=== PATIENT | male | born 1950 | race Caucasian/White ===

== ENCOUNTER 2016-05-30 12:31 | Outpatient (RCR) ==
[2016-05-30 13:09] VITALS: TEMP 98.8; BMI 37.2
[2016-06-27 09:53] VITALS: BP 140/72
== END 2016-06-28 ==
LOC: CAR.REHAB 12:31
PROVIDERS: ATTEND Internal Medicine
DX: Z95.4 Presence of other heart-valve replacement (principal); Z95.1 Presence of aortocoronary bypass graft
CPT/HCPCS: 93798

== ENCOUNTER 2016-06-29 06:54 | Outpatient (RCR) ==
[2016-07-25 09:57] VITALS: BP 158/62
== END 2016-07-26 ==
LOC: CAR.REHAB 06:54
PROVIDERS: ATTEND Internal Medicine
DX: Z95.4 Presence of other heart-valve replacement (principal); Z95.1 Presence of aortocoronary bypass graft
CPT/HCPCS: 93798

== ENCOUNTER 2016-07-27 06:43 | Outpatient (RCR) ==
[2016-08-22 09:49] VITALS: BP 152/56
== END 2016-08-26 ==
LOC: CAR.REHAB 06:43
PROVIDERS: ATTEND Internal Medicine
DX: Z95.2 Presence of prosthetic heart valve (principal); Z95.1 Presence of aortocoronary bypass graft
CPT/HCPCS: 93798

== ENCOUNTER 2016-08-23 13:49 | Outpatient (CLI) | END 2016-08-23 13:50 | disposition home or self-care (01) | LOC: AMBL 13:49 | PROVIDERS: ATTEND Internal Medicine | DX: R06.02 Shortness of breath (principal); I10 Essential (primary) hypertension; E11.9 Type 2 diabetes mellitus without complications; Z79.899 Other long term (current) drug therapy ==

== ENCOUNTER 2016-08-27 07:00 | Outpatient (RCR) | payer OTHER ==
[2016-09-05 14:25] VITALS: BP 158/60
== END 2016-09-05 12:30 | disposition home or self-care (01) ==
LOC: CAR.REHAB 07:00
PROVIDERS: ATTEND Internal Medicine
DX: I25.810 Atherosclerosis of coronary artery bypass graft(s) without angina pectoris (principal); Z95.2 Presence of prosthetic heart valve
CPT/HCPCS: 93798

== ENCOUNTER 2016-09-12 08:45 | Outpatient (RCR) ==
[2016-09-21 09:06] VITALS: BP 138/64
== END 2016-09-25 ==
LOC: CAR.REHAB 08:45
PROVIDERS: ATTEND Internal Medicine
DX: I25.810 Atherosclerosis of coronary artery bypass graft(s) without angina pectoris (principal); Z95.2 Presence of prosthetic heart valve
CPT/HCPCS: 93797

== ENCOUNTER 2016-09-26 12:26 | Outpatient (RCR) ==
[2016-10-12 09:57] VITALS: BP 146/68
== END 2016-10-26 ==
LOC: CAR.REHAB 12:26
PROVIDERS: ATTEND Internal Medicine
DX: I25.810 Atherosclerosis of coronary artery bypass graft(s) without angina pectoris (principal); Z95.2 Presence of prosthetic heart valve
CPT/HCPCS: 93797

== ENCOUNTER 2016-10-23 08:57 | Emergency (ER) ==
[2016-10-23 09:10] VITALS: BP 221/114; TEMP 96.1; BMI 31.3
== END 2016-10-23 09:13 | disposition left against medical advice (07) ==
LOC: ED 08:57
DX: I10 Essential (primary) hypertension (principal); R51 Headache
CPT/HCPCS: 99281

== ENCOUNTER 2016-10-27 10:23 | Outpatient (RCR) ==
[2016-11-23 09:12] VITALS: BP 148/72
== END 2016-11-25 ==
LOC: CAR.REHAB 10:23
PROVIDERS: ATTEND Internal Medicine
DX: I25.810 Atherosclerosis of coronary artery bypass graft(s) without angina pectoris (principal); Z98.890 Other specified postprocedural states
CPT/HCPCS: 93797

== ENCOUNTER 2016-11-28 06:39 | Outpatient (RCR) ==
[2016-12-22 08:27] VITALS: BP 142/64
== END 2016-12-26 ==
LOC: CAR.REHAB 06:39
PROVIDERS: ATTEND Internal Medicine
DX: I25.810 Atherosclerosis of coronary artery bypass graft(s) without angina pectoris (principal); Z95.2 Presence of prosthetic heart valve
CPT/HCPCS: 93797

== ENCOUNTER 2016-12-27 06:44 | Outpatient (RCR) | END 2017-01-26 | LOC: CAR.REHAB 06:44 | PROVIDERS: ATTEND Internal Medicine | DX: Z95.1 Presence of aortocoronary bypass graft (principal); Z95.2 Presence of prosthetic heart valve ==

== ENCOUNTER 2017-01-27 08:27 | Outpatient (RCR) | END 2017-02-20 09:57 | disposition home or self-care (01) | LOC: CAR.REHAB 08:27 | PROVIDERS: ATTEND Internal Medicine | DX: I25.810 Atherosclerosis of coronary artery bypass graft(s) without angina pectoris (principal); Z95.2 Presence of prosthetic heart valve ==

== ENCOUNTER 2017-07-24 08:25 | Outpatient (RCR) ==
[2017-07-24 09:52] VITALS: BP 136/56; TEMP 98.5; BMI 34.4
== END 2017-07-26 ==
LOC: CAR.REHAB 08:25
PROVIDERS: ATTEND Internal Medicine
DX: I25.810 Atherosclerosis of coronary artery bypass graft(s) without angina pectoris (principal)
CPT/HCPCS: 93797

== ENCOUNTER 2017-07-27 06:54 | Outpatient (RCR) ==
[2017-08-25 09:47] VITALS: BP 126/54
== END 2017-08-26 ==
LOC: CAR.REHAB 06:54
PROVIDERS: ATTEND Internal Medicine
DX: I25.810 Atherosclerosis of coronary artery bypass graft(s) without angina pectoris (principal)
CPT/HCPCS: 93797

== ENCOUNTER 2017-08-28 06:35 | Outpatient (RCR) ==
[2017-09-25 09:56] VITALS: BP 136/56
== END 2017-09-25 23:59 ==
LOC: CAR.REHAB 06:35
PROVIDERS: ATTEND Internal Medicine
DX: I25.810 Atherosclerosis of coronary artery bypass graft(s) without angina pectoris (principal)
CPT/HCPCS: 93797

== ENCOUNTER 2017-09-26 07:18 | Outpatient (RCR) ==
[2017-10-16 09:48] VITALS: BP 144/58
== END 2017-10-26 23:59 ==
LOC: CAR.REHAB 07:18
PROVIDERS: ATTEND Internal Medicine
DX: I25.810 Atherosclerosis of coronary artery bypass graft(s) without angina pectoris (principal)
CPT/HCPCS: 93797

== ENCOUNTER 2017-10-27 06:56 | Outpatient (RCR) ==
[2017-11-16 09:41] VITALS: BP 138/58
== END 2017-11-25 23:59 ==
LOC: CAR.REHAB 06:56
PROVIDERS: ATTEND Internal Medicine
DX: I25.810 Atherosclerosis of coronary artery bypass graft(s) without angina pectoris (principal)
CPT/HCPCS: 93797

== ENCOUNTER 2017-11-27 07:30 | Outpatient (RCR) ==
[2017-11-28 09:54] VITALS: BP 140/56
== END 2017-12-26 23:59 ==
LOC: CAR.REHAB 07:30
PROVIDERS: ATTEND Internal Medicine
DX: I25.810 Atherosclerosis of coronary artery bypass graft(s) without angina pectoris (principal); Z95.2 Presence of prosthetic heart valve
CPT/HCPCS: 93797

== ENCOUNTER 2017-12-27 07:03 | Outpatient (RCR) | END 2018-01-26 23:59 | LOC: CAR.REHAB 07:03 | PROVIDERS: ATTEND Internal Medicine | DX: I25.810 Atherosclerosis of coronary artery bypass graft(s) without angina pectoris (principal); Z95.2 Presence of prosthetic heart valve ==

== ENCOUNTER 2018-01-30 06:53 | Outpatient (RCR) | END 2018-02-25 23:59 | LOC: CAR.REHAB 06:53 | PROVIDERS: ATTEND Internal Medicine | DX: I25.810 Atherosclerosis of coronary artery bypass graft(s) without angina pectoris (principal); Z95.2 Presence of prosthetic heart valve ==

== ENCOUNTER 2018-02-26 08:07 | Outpatient (RCR) ==
[2018-03-27 09:43] VITALS: BP 180/88
== END 2018-03-28 23:59 ==
LOC: CAR.REHAB 08:07
PROVIDERS: ATTEND Internal Medicine
DX: I25.810 Atherosclerosis of coronary artery bypass graft(s) without angina pectoris (principal); Z95.2 Presence of prosthetic heart valve

== ENCOUNTER 2018-03-27 09:29 | Emergency (ER) ==
[2018-03-27 09:35] VITALS: BP 164/87; TEMP 97.7; BMI 40.4
--- NOTE | 2018-03-27 10:13 | ED.PDOC ---
General ED Provider: Dr. CINDY MCKINNEY Chief Complaint: Hypertension Stated Complaint: Was in Cardiac Rehab and BP was elevated. Sent to ER for evaluation. HX Hypertension and Coronary Artery Disease. Time Seen by Physician: 10:00 Mode of Arrival: Wheelchair Information Source: Patient Exam Limitations: No limitations Primary Care Provider: CINDY CISNEROS Referred to ED by: PCP Nursing and Triage Documentation Reviewed and Agree: Yes Does patient meet sepsis criteria?: No System Inflammatory Response Syndrome: Not Applicable Sepsis Protocol: For patient's 13 years and over: Temp is 96.8 and below OR 101 and greater Pulse >90 BPM Resp >20/minute Acutely Altered Mental Status Are patient's symptoms suggestive of a new infection, such as: -Pneumonia -Skin, Soft Tissue -Endocarditis -UTI -Bone, Joint Infection -Implantable Device -Acute Abdominal Infection -Wound Infection -Meningitis -Blood Stream Catheter Infection -Unknown Cardiovascular Complaint Exam - Hypertension Complaint/Exam Symptoms Are: Still present Timing: Constant Reported B/P Prior to Arrival: 180/88-186/90-176/86 Aggravating: Reports: Exertion Alleviating: Reports: Rest Associated Signs and Symptoms: Denies: Chest pain, Vision changes, Anxiety, Recent stress, Headache, Numbness, Tingling, Weakness, Dizziness, Short of air, Swelling Related History: Reports: Similar episode, Current ARBs, Current Ca Machado.Yomi Related Surgical History: Reports: Cardiac Cath, CABG Cardiac Risk Factors: Reports: Hypertension, Smoking Recent Change in Medications: No A/V Nicking: No Papilledema Present: No JVD Present: No Carotid Bruit Present: No Femoral Pulses Bounding: No Differential Diagnoses: Hypertension, Hypertensive Urgency Review of Systems - Review Of Systems Constitutional: Reports: No symptoms Eyes: Reports: No symptoms Ears, Nose, Mouth, Throat: Reports: No symptoms Respiratory: Reports: No symptoms Cardiac: Reports: No symptoms GI: Reports: No symptoms : Reports: No symptoms Musculoskeletal: Reports: No symptoms Skin: Reports: No symptoms Neurological: Reports: No symptoms Endocrine: Reports: No symptoms Hematologic/Lymphatic: Reports: No symptoms All Other Systems: Reviewed and Negative Past Medical History - Past Medical History Endocrine: Reports: DM 2, Dyslipidemia Cardiovascular: Reports: CAD, Hypertension Respiratory: Reports: None Hematological: Reports: Anemia Gastrointestinal: Reports: None Genitourinary: Reports: CKD Neuro/Psych: Reports: None Musculoskeletal: Reports: None Cancer: Reports: None - Surgical History General Surgical History: Reports: CABG (apr 01-) - Family History Family History: Reports: None - Social History Smoking Status: Former smoker Hx Substance Use: No Alcohol Screening: None Physical Exam - Physical Exam Appearance: Well-appearing, No pain distress, Well-nourished, Obese Ill-appearing: None Pain Distress: None Eyes: JOAN, EOMI, Conjunctiva clear ENT: Ears normal, Nose normal, Oropharynx normal Respiratory: Airway patent, Breath sounds clear, Breath sounds equal, Respirations nonlabored Cardiovascular: RRR, Pulses normal, No rub, No murmur GI/: Soft, Nontender, No masses, Bowel sounds normal, No Organomegaly Musculoskeletal: Normal strength, ROM intact, No edema, No calf tenderness Skin: Warm, Dry, Normal color Neurological: Sensation intact, Motor intact, Reflexes intact, Cranial nerves intact, Alert, Oriented Psychiatric: Affect appropriate, Mood appropriate Critical Care Note - Critical Care Note Total Time (mins): 60 Course - Course Hematology/Chemistry: 03/27/18 10:21 03/27/18 09:40 Orders, Labs, Meds: Lab Review 03/27/18 03/27/18 03/27/18 09:40 10:21 10:30 WBC 8.31 RBC 4.57 L Hgb 13.2 L Hct 40.5 L MCV 88.6 MCH 28.9 MCHC 32.6 RDW Coeff of Sarthak 15.2 H Plt Count 179 Immature Gran % (Auto) 0.4 Neut % (Auto) 64.5 Lymph % (Auto) 18.3 [place] % (Auto) 11.4 H Eos % (Auto) 4.1 Baso % (Auto) 1.3 Immature Gran # (Auto) 0.0 Neut # (Auto) 5.4 Lymph # (Auto) 1.5 [place]gs # (Auto) 1.0 Eos # (Auto) 0.3 Baso # (Auto) 0.1 Sodium 138.4 Potassium 4.11 Chloride 103.4 Carbon Dioxide 28.3 Anion Gap 10.81 BUN 22.8 H Creatinine 1.81 H Estimated GFR (MDRD) 38.00 BUN/Creatinine Ratio 12.59 Glucose 99.2 Uric Acid 4.82 Calcium 8.98 Total Bilirubin 0.71 AST 26.6 ALT 28.5 Alkaline Phosphatase 151.8 H Troponin I 0.013 Total Protein 7.39 Albumin 4.15 Globulin 3.24 Albumin/Globulin Ratio 1.28 Urine Color Yellow Urine Clarity Clear Urine pH 6.5 Ur Specific Effie 1.015 Urine Protein Negative Urine Glucose (UA) Negative Urine Ketones Negative Urine Blood Negative Urine Nitrite Negative Urine Bilirubin Negative Urine Urobilinogen 0.2 Ur Leukocyte Esterase Negative Orders Category Date Time Status EKG-(ED ONLY) Stat CARDIO 03/27/18 10:21 Completed CBC W/ AUTO DIFF Stat LAB 03/27/18 10:21 Completed CMP [COMPREHENSIVE METABOLIC PANEL] Stat LAB 03/27/18 09:40 Completed RAPID STREP SCREEN [MOLECULAR GROUP A STREP] Stat LAB 03/27/18 10:30 Completed TROPONIN I Stat LAB 03/27/18 09:40 Completed UA [URINALYSIS C & S IF INDICATED] Stat LAB 03/27/18 10:30 Completed URIC ACID Stat LAB 03/27/18 09:40 Completed Hydralazine HCl [Apresoline] MEDS 03/27/18 12:10 Stat 25 mg PO ONCE STA CHEST, 1V AP ONLY Stat RADS 03/27/18 10:22 Completed Medications Discontinued Medications Generic Name Dose Route Start Last Admin Trade Name Freq PRN Reason Stop Dose Admin Hydralazine HCl 25 mg 03/27/18 12:10 03/27/18 12:19 Apresoline PO 03/27/18 12:11 25 mg ONCE STA Administration Vital Signs: Temp Pulse Resp BP Pulse Ox 03/27/18 09:29 97.7 F 62 18 164/87 H 94 L RODRIGO Risk Score RODRIGO Risk Score: Risk Score Odds of by 30D 0 0.1 (0.1-0.2) 1 0.3 (0.2-0.3) 2 0.4 (0.3-0.5) 3 0.7 (0.6-0.9) 4 1.2 (1.0-1.5) 5 2.2 (1.9-2.6) 6 3.0 (2.5-3.6) 7 4.8 (3.8-6.1) Departure - Departure Time of Disposition: 12:30 Disposition: HOME SELF-CARE Discharge Problem: Labile essential hypertension Instructions: Hypertension (ED) Condition: Good Pt referred to PMD for follow-up: Yes (see dr cisneros in next 1 week) IPMP verified?: No Additional Instructions: Add hydralazine 25 mg daily mid day\ Continue remainder of meds Allergies/Adverse Reactions: Allergies No Known Allergies Allergy (Verified 03/27/18 09:35) Home Medications: Ambulatory Orders Febuxostat [Uloric] 40 mg PO DAILY 06/23/15 Linagliptin [Tradjenta] 5 mg PO DAILY 06/23/15 Pravastatin Sodium 40 mg PO DAILY 06/23/15 Aspirin 81 mg PO DAILY 03/27/18 Atenolol 50 mg PO BID 03/27/18 Bumetanide [Bumex] 1 mg PO BIDAC 03/27/18 Clonidine HCl [Clonidine HCl ER] 0.1 mg PO PRN PRN 03/27/18 Diltiazem HCl [Cartia Xt] 240 mg PO BID 03/27/18 Docusate Sodium [Dulcolax Stool Softener] 100 mg PO BID 03/27/18 Famotidine [Pepcid] 20 mg PO BID 03/27/18 Hydralazine HCl 25 mg PO DAILYWM #30 tablet 03/27/18 Hydralazine HCl 100 mg PO TID 03/27/18 Isosorbide Mononitrate [Imdur] 30 mg PO DAILY 03/27/18 Losartan Potassium [Cozaar] 100 mg PO DAILY 03/27/18 Pregabalin [Lyrica] 150 mg PO DAILY 03/27/18 Primidone 50 mg PO BID 03/27/18 Disposition Discussed With: Patient, Family
--- NOTE | 2018-03-27 10:39 | DI ---
EXAM: Single view of the chest. History: Elevated blood pressure Comparison: Chest CT 04/20/2016 Findings: Heart is enlarged. Sternotomy wires. Atherosclerotic vascular calcifications. No eviden ce for pulmonary edema. No pleural fluid and no pneumothorax. No acute osseous abnormalities. Impression: Cardiomegaly without overt heart failure
[2018-03-27] MEDS ORDERED: APRESOLINE PO STA (12:10)
== END 2018-03-27 12:45 | disposition home or self-care (01) ==
LOC: ED 09:29
DX: I10 Essential (primary) hypertension (principal); I25.810 Atherosclerosis of coronary artery bypass graft(s) without angina pectoris; F17.210 Nicotine dependence, cigarettes, uncomplicated; E11.9 Type 2 diabetes mellitus without complications; E78.5 Hyperlipidemia, unspecified; N18.9 Chronic kidney disease, unspecified; D63.1 Anemia in chronic kidney disease; Z79.899 Other long term (current) drug therapy
CPT/HCPCS: 36415; 80053; 81001; 84484; 84550; 85025; 87651; 93005; 93010; 99283

== ENCOUNTER 2018-04-30 07:48 | Outpatient (RCR) ==
[2018-05-15 09:51] VITALS: BP 130/54
== END 2018-05-28 23:59 ==
LOC: CAR.REHAB 07:48
PROVIDERS: ATTEND Internal Medicine
DX: I25.810 Atherosclerosis of coronary artery bypass graft(s) without angina pectoris (principal); Z95.2 Presence of prosthetic heart valve
CPT/HCPCS: 93797

== ENCOUNTER 2018-05-30 07:38 | Outpatient (RCR) ==
[2018-06-07 09:47] VITALS: BP 138/56
== END 2018-06-28 23:59 ==
LOC: CAR.REHAB 07:38
PROVIDERS: ATTEND Internal Medicine
DX: I25.810 Atherosclerosis of coronary artery bypass graft(s) without angina pectoris (principal); Z95.2 Presence of prosthetic heart valve
CPT/HCPCS: 93797

== ENCOUNTER 2018-06-29 07:07 | Outpatient (RCR) ==
[2018-07-12 09:52] VITALS: BP 128/54
== END 2018-07-26 23:59 ==
LOC: CAR.REHAB 07:07
PROVIDERS: ATTEND Internal Medicine
DX: I25.810 Atherosclerosis of coronary artery bypass graft(s) without angina pectoris (principal); Z95.2 Presence of prosthetic heart valve
CPT/HCPCS: 93797

== ENCOUNTER 2018-07-27 07:02 | Outpatient (RCR) ==
[2018-08-23 09:45] VITALS: BP 138/64
== END 2018-08-26 23:59 ==
LOC: CAR.REHAB 07:02
PROVIDERS: ATTEND Internal Medicine
DX: I25.810 Atherosclerosis of coronary artery bypass graft(s) without angina pectoris (principal); Z95.2 Presence of prosthetic heart valve
CPT/HCPCS: 93797

== ENCOUNTER 2018-08-27 09:36 | Outpatient (RCR) ==
[2018-09-06 09:47] VITALS: BP 128/54
[2018-09-14 04:53] VITALS: BMI 38.0
== END 2018-09-25 23:59 ==
LOC: CAR.REHAB 09:36
PROVIDERS: ATTEND Internal Medicine
DX: I25.810 Atherosclerosis of coronary artery bypass graft(s) without angina pectoris (principal); Z95.2 Presence of prosthetic heart valve
CPT/HCPCS: 93797

== ENCOUNTER 2018-09-13 21:32 | Observation (INO) ==
[2018-09-13] MEDS ORDERED: SODIUM CHLORIDE 1,000 ML IV STA (21:44)
[2018-09-13] MEDS ORDERED: ZOFRAN 4 MG/2 ML IVP STA (21:44)
[2018-09-13] MEDS ORDERED: ROCEPHIN 1 GM VIAL 1 GM in SODIUM CHLORIDE 50 ML IV STA (21:50)
[2018-09-13] MEDS ORDERED: XOPENEX 1.25 MG NEB STA (22:04)
[2018-09-13] MEDS ORDERED: ROCEPHIN 1 GM VIAL ONE (22:16)
[2018-09-13] MEDS ORDERED: MORPHINE 2 MG/ML SYRINGE IVP STA (22:36)
--- NOTE | 2018-09-13 23:35 | CT ---
EXAM: CT scan abdomen pelvis without contrast HISTORY: Vomiting COMPARISON: CT scan abdomen pelvis 04/20/2016 FINDINGS: Contiguous axial images were obtained through the abdomen and pelvis without contrast util izing 3-mm collimation. Sagittal and coronal reconstructions were imaged and reviewed... Visualized lung bases are clear. There is a small hiatal hernia. Gallbladder is fluid filled without cholelit hiasis. The the liver, pancreas, spleen and adrenal glands have normal unenhanced CT appearance. At herosclerotic changes are seen involving the aorta without aneurysm formation. The left kidney is at rophic.. There are bilateral renal artery stents. The right kidney is unremarkable Prostate gland normal in size. There is diverticulosis without diverticulitis. Appendix is not visualized. There is a small fat-containing umbilical hernia.. There is no free fluid or inflammatory changes.. Bone windows reveals no evidence of lytic or blastic lesions. IMPRESSION: ASVD without aneurysm. Atrophic left kidney. Diverticulosis without diverticulitis
--- NOTE | 2018-09-13 23:43 | CT ---
EXAM: CT scan chest without contrast HISTORY: Cough fever COMPARISON: CT scan chest 04/20/2016 FINDINGS: Contiguous axial images obtained through the thorax without contrast utilizing 5-mm collim ation. Sagittal and coronal reconstructions were imaged and reviewed.. The thoracic inlet is unrema rkable. Redemonstrated are small mediastinal lymph nodes. Sternal wire sutures noted.. There is st able diastases of the sternum.. Heart is normal in size without pericardial effusion. There is left atrial clip Minimal ground-glass opacity is seen within the upper lobes. There is no consolidation or effusion IMPRESSION: Prior mediastinotomy with stable diastases of the sternum. Minimal ground-glass opacity within the upper lobes. Stable small mediastinal lymph nodes.
[2018-09-14] MEDS ORDERED: SODIUM CHLORIDE 1,000 ML IV STA (00:21)
[2018-09-14] MEDS ORDERED: TYLENOL PO STA (00:21)
--- NOTE | 2018-09-14 03:38 | ED.PDOC ---
General ED Provider: Dr. CINDY CISNEROS-ER Chief Complaint: Nausea/Vomiting Stated Complaint: im vomiting and having diarrhea Time Seen by Physician: 21:40 Mode of Arrival: Walk-In Information Source: Patient, Family Exam Limitations: No limitations Primary Care Provider: CINDY CISNEROS Nursing and Triage Documentation Reviewed and Agree: Yes Does patient meet sepsis criteria?: No System Inflammatory Response Syndrome: Not Applicable Sepsis Protocol: For patient's 13 years and over: Temp is 96.8 and below OR 101 and greater Pulse >90 BPM Resp >20/minute Acutely Altered Mental Status Are patient's symptoms suggestive of a new infection, such as: -Pneumonia -Skin, Soft Tissue -Endocarditis -UTI -Bone, Joint Infection -Implantable Device -Acute Abdominal Infection -Wound Infection -Meningitis -Blood Stream Catheter Infection -Unknown GI Complaint Exam - Vomiting/Diarrhea Complaint/Exam Onset/Duration: 4 hrs Symptoms Are: Still present Initial Severity: Mild Current Severity: Mild Character of Vomiting: Reports: Non-bilious Character of Diarrhea: Reports: Watery Aggravating: Reports: None Alleviating: Reports: None Associated Signs and Symptoms: Denies: Dizziness, Light-headedness, Melena, Hematemesis, Fever, Abdominal pain, Cramping Abdominal Findings: Present: None Kussmaul Respirations Present: No Differential Diagnoses: Dehydration Review of Systems - Review Of Systems Constitutional: Reports: No symptoms Eyes: Reports: No symptoms Ears, Nose, Mouth, Throat: Reports: No symptoms Respiratory: Reports: No symptoms Cardiac: Reports: No symptoms GI: Reports: Abdominal pain, Diarrhea, Nausea, Vomiting : Reports: No symptoms Musculoskeletal: Reports: No symptoms Skin: Reports: No symptoms Neurological: Reports: No symptoms Endocrine: Reports: No symptoms Hematologic/Lymphatic: Reports: No symptoms All Other Systems: Reviewed and Negative Past Medical History - Past Medical History Previously Healthy: No Endocrine: Reports: DM 2, Dyslipidemia Cardiovascular: Reports: CAD, Hypertension Respiratory: Reports: None Hematological: Reports: Anemia Gastrointestinal: Reports: None Genitourinary: Reports: CKD Neuro/Psych: Reports: None Musculoskeletal: Reports: None Cancer: Reports: None - Surgical History General Surgical History: Reports: CABG (apr 01-16) - Family History Family History: Reports: None - Social History Smoking Status: Former smoker Hx Substance Use: No Alcohol Screening: None - Immunizations Tetanus Shot up to Date: Yes Physical Exam - Physical Exam Appearance: Well-appearing, No pain distress, Well-nourished Eyes: JOAN, EOMI, Conjunctiva clear ENT: Ears normal, Nose normal, Oropharynx normal Neck: Supple Respiratory: Airway patent, Breath sounds clear, Breath sounds equal, Respirations nonlabored Cardiovascular: RRR, Pulses normal, No rub, No murmur GI/: Soft, No masses Musculoskeletal: Normal strength, ROM intact, No edema, No calf tenderness Skin: Warm, Dry, Normal color Neurological: Sensation intact Psychiatric: Affect appropriate, Mood appropriate Interpretation - Radiology Interpretation Radiology Interpretation By: Radiologist Radiology Results: Negative Exam Interpreted: CT Scan - EKG Interpretation Time of EKG #1: 03:38 Rate: Normal Rhythm: Sinus Ectopy: None [place]: NL ST Segment: Normal Interpretation: nsr Critical Care Note - Critical Care Note Total Time (mins): 0 Course - Course Hematology/Chemistry: 09/13/18 22:09 09/13/18 22:09 Orders, Labs, Meds: Lab Review 09/13/18 09/13/18 09/13/18 21:43 22:09 22:09 WBC 8.84 RBC 5.65 Hgb 15.9 Hct 49.0 MCV 86.7 MCH 28.1 MCHC 32.4 RDW Coeff of Sarthak 15.4 H Plt Count 177 Immature Gran % (Auto) 0.2 Neut % (Auto) 84.8 Lymph % (Auto) 5.7 L Delta % (Auto) 7.6 Eos % (Auto) 1.2 Baso % (Auto) 0.5 Immature Gran # (Auto) 0.0 Neut # (Auto) 7.5 H Lymph # (Auto) 0.5 L Delta # (Auto) 0.7 Eos # (Auto) 0.1 Baso # (Auto) 0.0 Puncture Site Lb O2 Saturation 92.0 L ABG pH 7.467 H ABG pCO2 26.9 L ABG pO2 58.0 L* ABG HCO3 19.5 L ABG Total CO2 20 L ABG Base Excess -4 L Rajinder Test + FiO2 % 21.0 Sodium 141.7 Potassium 4.34 Chloride 105.6 Carbon Dioxide 21.5 L Anion Gap 18.94 BUN 36.0 H Creatinine 2.52 H Estimated GFR (MDRD) 26.00 BUN/Creatinine Ratio 14.28 Glucose 123.4 H Lactic Acid Calcium 9.04 Total Bilirubin 0.97 AST 26.0 ALT 24.4 Alkaline Phosphatase 180.1 H Total Protein 7.95 Albumin 4.86 Globulin 3.09 Albumin/Globulin Ratio 1.57 Amylase 153.4 H Lipase 156.4 Procalcitonin Urine Color Urine Clarity Urine pH Ur Specific [place]oun Urine Protein Urine Glucose (UA) Urine Ketones Urine Blood Urine Nitrite Urine Bilirubin Urine Urobilinogen Ur Leukocyte Esterase Ur Squamous Epith Cells Urine Mucus Influ A Molecular Assay Influ B Molecular Assay 09/13/18 09/13/18 09/13/18 22:09 22:09 22:10 WBC RBC Hgb Hct MCV MCH MCHC RDW Coeff of Sarthak Plt Count Immature Gran % (Auto) Neut % (Auto) Lymph % (Auto) Delta % (Auto) Eos % (Auto) Baso % (Auto) Immature Gran # (Auto) Neut # (Auto) Lymph # (Auto) Delta # (Auto) Eos # (Auto) Baso # (Auto) Puncture Site O2 Saturation ABG pH ABG pCO2 ABG pO2 ABG HCO3 ABG Total CO2 ABG Base Excess Rajinder Test FiO2 % Sodium Potassium Chloride Carbon Dioxide Anion Gap BUN Creatinine Estimated GFR (MDRD) BUN/Creatinine Ratio Glucose Lactic Acid 1.49 Calcium Total Bilirubin AST ALT Alkaline Phosphatase Total Protein Albumin Globulin Albumin/Globulin Ratio Amylase Lipase Procalcitonin 0.18 Urine Color Urine Clarity Urine pH Ur Specific [place] Urine Protein Urine Glucose (UA) Urine Ketones Urine Blood Urine Nitrite Urine Bilirubin Urine Urobilinogen Ur Leukocyte Esterase Ur Squamous Epith Cells Urine Mucus Influ A Molecular Assay Negative by naat Influ B Molecular Assay Negative by naat 09/14/18 02:40 WBC RBC Hgb Hct MCV MCH MCHC RDW Coeff of Sarthak Plt Count Immature Gran % (Auto) Neut % (Auto) Lymph % (Auto) Delta % (Auto) Eos % (Auto) Baso % (Auto) Immature Gran # (Auto) Neut # (Auto) Lymph # (Auto) Delta # (Auto) Eos # (Auto) Baso # (Auto) Puncture Site O2 Saturation ABG pH ABG pCO2 ABG pO2 ABG HCO3 ABG Total CO2 ABG Base Excess Rajinder Test FiO2 % Sodium Potassium Chloride Carbon Dioxide Anion Gap BUN Creatinine Estimated GFR (MDRD) BUN/Creatinine Ratio Glucose Lactic Acid Calcium Total Bilirubin AST ALT Alkaline Phosphatase Total Protein Albumin Globulin Albumin/Globulin Ratio Amylase Lipase Procalcitonin Urine Color Yellow Urine Clarity Clear Urine pH 5.5 Ur Specific Calhoun 1.020 Urine Protein Trace Urine Glucose (UA) Negative Urine Ketones Negative Urine Blood Negative Urine Nitrite Negative Urine Bilirubin Negative Urine Urobilinogen 0.2 Ur Leukocyte Esterase Negative Ur Squamous Epith Cells 2-5 Urine Mucus Trace Influ A Molecular Assay Influ B Molecular Assay Orders Category Date Time Status ABG DRAW REQUEST Stat CARDIO 09/13/18 21:43 Completed EKG-(ED ONLY) Stat CARDIO 09/13/18 21:43 Completed NEBULIZER TREATMENT Stat CARDIO 09/13/18 22:05 Completed ED IV/MEDIPORT/POWERPORT .ONCE EMERGENCY 09/13/18 21:43 Active OXYGEN [ED APPLY O2] .ONCE EMERGENCY 09/13/18 22:04 Active ABG Stat LAB 09/13/18 21:43 Completed AMYLASE Stat LAB 09/13/18 22:09 Completed BLOOD CULTURE Stat LAB 09/13/18 22:09 Received CBC W/ AUTO DIFF Stat LAB 09/13/18 22:09 Completed COMPREHENSIVE METABOLIC PANEL Stat LAB 09/13/18 22:09 Completed FLU A/B MOLECULAR Stat LAB 09/13/18 22:10 Completed LACTIC ACID Stat LAB 09/13/18 22:09 Completed LIPASE Stat LAB 09/13/18 22:09 Completed MOLECULAR GROUP A STREP Stat LAB 09/13/18 22:10 Completed PROCALCITONIN Stat LAB 09/13/18 22:09 Completed URINALYSIS C & S IF INDICATED Stat LAB 09/14/18 02:40 Completed 0.9 % Sodium Chloride [Saline Flush] MEDS 09/13/18 21:43 Ordered 1 syr IVF PRN PRN Acetaminophen [Tylenol] MEDS 09/14/18 00:21 Discontinued 650 mg PO ONCE STA Ceftriaxone Sodium [Rocephin] MEDS 09/13/18 22:16 Discontinued 1 gm .ROUTE .STK-MED ONE Ceftriaxone Sodium [Rocephin] 1 gm MEDS 09/13/18 21:50 Discontinued 0.9 % Sodium Chloride [Sodium Chloride] 50 ml IV ONCE Levalbuterol HCl [Xopenex 1.25 mg] MEDS 09/13/18 22:04 Discontinued 1 vial NEB ONCE STA Morphine Sulfate [Morphine 2 mg/ml Syringe] MEDS 09/13/18 22:36 Discontinued 2 mg IVP ONCE STA Ondansetron HCl/Pf [Zofran 4 mg/2 ml] MEDS 09/13/18 21:44 Discontinued 4 mg IVP ONCE STA Sodium Chloride 0.9% [Sodium Chloride] 1,000 ml MEDS 09/14/18 00:21 Active IV 125 mls/hr Sodium Chloride 0.9% [Sodium Chloride] 1,000 ml MEDS 09/13/18 21:[address] ABDOMEN/PELVIS WO CONTRAST Stat RADS 09/13/18 21:[address] CHEST W/O CONTRAST Stat RADS 09/13/18 21:45 Completed Medications Generic Name Dose Route Start Last Admin Trade Name Freq PRN Reason Stop Dose Admin Sodium Chloride 1,000 mls @ 125 mls/hr 09/14/18 00:21 Sodium Chloride IV 09/14/18 08:20 .Q8H STA Sodium Chloride 1 syr 09/13/18 21:43 09/13/18 22:15 Saline Flush IVF 1 syr PRN PRN Administration To flush IV Discontinued Medications Generic Name Dose Route Start Last Admin Trade Name Freq PRN Reason Stop Dose Admin Acetaminophen 650 mg 09/14/18 00:21 09/14/18 00:31 Tylenol PO 09/14/18 00:22 650 mg ONCE STA Administration Sodium Chloride 1,000 mls @ 1,000 mls/hr 09/13/18 21:44 09/13/18 22:15 Sodium Chloride IV 09/13/18 22:43 1,000 mls/hr BOLUS STA Administration Ceftriaxone Sodium 1 gm/ 50 mls @ 75 mls/hr 09/13/18 21:50 09/13/18 22:18 Sodium Chloride IV 09/13/18 22:29 75 mls/hr ONCE STA Administration Levalbuterol HCl 1 vial 09/13/18 22:04 09/13/18 22:25 Xopenex 1.25 Mg NEB 09/13/18 22:05 1 vial ONCE STA Administration Morphine Sulfate 2 mg 09/13/18 22:36 09/13/18 22:41 Morphine 2 Mg/Ml Syringe IVP 09/13/18 22:37 2 mg ONCE STA Administration Ondansetron HCl 4 mg 09/13/18 21:44 09/13/18 22:18 Zofran 4 Mg/2 Ml IVP 09/13/18 21:45 4 mg ONCE STA Administration Vital Signs: Temp Pulse Resp BP Pulse Ox 09/14/18 01:51 99.9 F H 89 22 166/79 H 95 09/13/18 23:36 100.4 F H 93 H 24 197/95 H 94 L 09/13/18 21:34 101.3 F H 90 28 H 178/93 H 86 L Departure - Departure Time of Disposition: 03:38 Disposition: PLACED OBSERVATION Discharge Problem: Enteritis Instructions: Enteritis (ED) Condition: Good Pt referred to PMD for follow-up: Yes IPMP verified?: No Allergies/Adverse Reactions: Allergies No Known Allergies Allergy (Verified 09/13/18 21:44) Home Medications: Ambulatory Orders Febuxostat [Uloric] 40 mg PO DAILY 06/23/15 Linagliptin [Tradjenta] 5 mg PO DAILY 06/23/15 Pravastatin Sodium 40 mg PO DAILY 06/23/15 Aspirin 81 mg PO DAILY 03/27/18 Atenolol 50 mg PO BID 03/27/18 Bumetanide [Bumex] 1 mg PO BIDAC 03/27/18 Clonidine HCl [Clonidine HCl ER] 0.1 mg PO PRN PRN 03/27/18 Diltiazem HCl [Cartia Xt] 240 mg PO BID 03/27/18 Docusate Sodium [Dulcolax Stool Softener] 100 mg PO BID 03/27/18 Famotidine [Pepcid] 20 mg PO BID 03/27/18 Hydralazine HCl 25 mg PO DAILYWM #30 tablet 03/27/18 Hydralazine HCl 100 mg PO TID 03/27/18 Isosorbide Mononitrate [Imdur] 30 mg PO DAILY 03/27/18 Losartan Potassium [Cozaar] 100 mg PO DAILY 03/27/18 Pregabalin [Lyrica] 150 mg PO DAILY 03/27/18 Primidone 50 mg PO BID 03/27/18 Transfer Form Completed: No Disposition Discussed With: Patient, Family
[2018-09-14] MEDS ORDERED: ZOFRAN 4 MG/2 ML IVP PRN (03:42)
[2018-09-14] MEDS ORDERED: CLONIDINE HCL 0.1 MG PO PRN (03:43)
[2018-09-14] MEDS ORDERED: SODIUM CHLORIDE 1,000 ML IV SCH (04:00)
[2018-09-14 04:53] VITALS: BMI 38.0
[2018-09-14] MEDS ORDERED: ASPIRIN CHEWABLE PO SCH (08:00)
[2018-09-14] MEDS ORDERED: NON-FORMULARY MEDICATION (Hydralazine Hcl [Hydralazine Hcl] 25 MG) PO SCH (08:00)
[2018-09-14] MEDS ORDERED: PRIMIDONE 50 MG PO SCH (09:00)
[2018-09-14] MEDS ORDERED: ULORIC PO SCH (09:00)
[2018-09-14] MEDS ORDERED: COZAAR PO SCH (09:00)
[2018-09-14] MEDS ORDERED: NON-FORMULARY MEDICATION (Hydralazine Hcl [Hydralazine Hcl] 100 MG) PO SCH (09:00)
[2018-09-14] MEDS ORDERED: PRAVACHOL PO SCH ×2 (09:00→21:00)
[2018-09-14] MEDS ORDERED: IMDUR PO SCH (09:00)
[2018-09-14] MEDS ORDERED: NON-FORMULARY MEDICATION (Pregabalin [Lyrica] 150 MG) PO SCH (09:00)
[2018-09-14] MEDS ORDERED: TRADJENTA PO SCH (09:00)
[2018-09-14] MEDS ORDERED: ASPIRIN EC PO SCH (13:15)
[2018-09-14] MEDS ORDERED: NON-FORMULARY MEDICATION (Clonidine Hcl [Clonidine Hcl] 0.1 MG) PO SCH (14:15)
[2018-09-14] MEDS: PRIMIDONE 50 MG PO SCH ×2 (15:42→21:05)
[2018-09-14] MEDS: NON-FORMULARY MEDICATION (Hydralazine Hcl [Hydralazine Hcl] 100 MG) PO SCH ×2 (15:43→20:57)
[2018-09-14] MEDS: DILTIAZEM HCL 240 MG PO SCH ×2 (15:45→20:57)
[2018-09-14] MEDS: PEPCID PO SCH ×2 (15:45→16:40)
[2018-09-14] MEDS: TENORMIN PO SCH ×2 (15:46→21:00)
[2018-09-14] MEDS: BUMEX PO SCH ×2 (15:46→16:39)
[2018-09-14] MEDS ORDERED: LOVENOX SUBCUT SCH (19:00)
[2018-09-14] MEDS ORDERED: LOVENOX ONE (20:51)
[2018-09-14] MEDS ORDERED: NON-FORMULARY MEDICATION (Clonidine Hcl [Clonidine Hcl] 0.2 MG) PO SCH (21:00)
[2018-09-14 22:09] VITALS: BP 130/77; TEMP 97.4
--- NOTE | 2018-09-24 13:39 | SSS ---
PRINCIPAL DIAGNOSIS: 1. GASTROENTERITIS 2. DIASTOLIC CONGESTIVE HEART FAILURE - COMPENSATED 3. COPD 4. DIABETES MELLITUS TYPE 2 5. HYPERTENSION 6. CHRONIC KIDNEY DISEASE DISCUSSION: This is a 68-year-old gentleman who was brought to the emergency room for vomiting and diarrhea. He had had several episodes of vomiting and diarrhea, was unable to stop. He was seen in the emergency department where he was given IV Zofran with improvement in his symptoms. His BUN and creatinine were elevated and slightly worse than baseline. At this point the patient was admitted to observation with IV fluids. PAST MEDICAL HISTORY: MEDICATIONS: ALLERGIES: PAST MEDICAL HISTORY: SOCIAL HISTORY: FAMILY HISTORY: Reviewed and thought not to be pertinent to discussion. REVIEW OF SYSTEMS: No headaches, visual changes, tinnitus, hemoptysis, blood in the stool, urinary symptoms or seizures. PHYSICAL EXAMINATION: VITAL SIGNS: Temperature , pulse , respirations and blood pressure . HEENT: Pupils are round. NECK: Supple. CHEST: Clear. CARDIOVASCULAR: Regular rate and rhythm. ABDOMEN: Soft, nontender. EXTREMITIES: Distal extremities without cyanosis or edema. CLINICAL COURSE: MTDD
--- NOTE | 2019-04-10 10:28 | SSS ---
PRINCIPAL DIAGNOSIS: 1. GASTROENTERITIS 2. DIASTOLIC CONGESTIVE HEART FAILURE - COMPENSATED 3. COPD 4. DIABETES MELLITUS TYPE 2 5. HYPERTENSION 6. CHRONIC KIDNEY DISEASE DISCUSSION: Mr. Duarte is a very pleasant 68 year old gentleman who presented to the emergency department with vomiting and diarrhea and several episodes of nonbilious vomiting as well nonbloody diarrhea. His family accompanied him to the emergency department and they were very concerned that he was at risk for dehydration and the patient was admitted to my services in observation with IV fluids and treatment of his nausea, vomiting and diarrhea. PAST MEDICAL HISTORY: MEDICATIONS: Uloric Tradjenta Pravastatin Aspirin Atenolol Bumex Clonidine Cartia Pepcid Hydralazine Isosorbide Losartan Lyrica Primidone ALLERGIES: No drug allergies PAST MEDICAL HISTORY: History of diabetes type 2 Hyperlipidemia Hypertension Coronary artery disease Neuropathy Essential tremor History of coronary bypass grafting SOCIAL HISTORY: Previous smoker, no alcohol or illicit drug use noted. FAMILY HISTORY: Reviewed and thought not to be pertinent to discussion. REVIEW OF SYSTEMS: No headaches, visual changes, tinnitus, chest pain, shortness of breath, hemoptysis, blood in the stool, urinary symptoms or seizures. PHYSICAL EXAMINATION: VITAL SIGNS: Temperature 101.3, pulse 90, respiratory rate 28, blood pressure 166/79. , pulse HEENT: Pupils are round. NECK: Supple. CHEST: Clear. CARDIOVASCULAR: Regular rate and rhythm. ABDOMEN: Soft, nontender. EXTREMITIES: Distal extremities without cyanosis or edema. CLINICAL COURSE: The patient was admitted to my services and given IV fluid support. He did defervesce. His diarrhea seemed to resolve as well as his fever. His diet was advanced and he tolerated this well. At time of discharge he was afebrile and tolerating a regular diet. At this point the patient will be discharge and followup in the office next week. ARMAND
== END 2018-09-14 22:00 | disposition home or self-care (01) ==
LOC: ED 21:32 → MEDSURG B 09-14 03:43
PROVIDERS: ADMIT Family Medicine; ATTEND Family Medicine
DX: R19.7 Diarrhea, unspecified; I50.30 Unspecified diastolic (congestive) heart failure; R11.2 Nausea with vomiting, unspecified; N18.9 Chronic kidney disease, unspecified; E11.9 Type 2 diabetes mellitus without complications; I10 Essential (primary) hypertension; K52.9 Noninfective gastroenteritis and colitis, unspecified; R10.9 Unspecified abdominal pain; J44.9 Chronic obstructive pulmonary disease, unspecified

== ENCOUNTER 2018-09-26 07:29 | Outpatient (RCR) | END 2018-10-26 23:59 | LOC: CAR.REHAB 07:29 | PROVIDERS: ATTEND Internal Medicine | DX: I25.810 Atherosclerosis of coronary artery bypass graft(s) without angina pectoris (principal); Z95.2 Presence of prosthetic heart valve ==

== ENCOUNTER 2018-12-27 06:56 | Outpatient (RCR) ==
[2019-01-24 09:46] VITALS: BP 134/54
== END 2019-01-26 23:59 ==
LOC: CAR.REHAB 06:56
PROVIDERS: ATTEND Internal Medicine
DX: I25.810 Atherosclerosis of coronary artery bypass graft(s) without angina pectoris (principal); Z95.2 Presence of prosthetic heart valve
CPT/HCPCS: 93797